=== PATIENT | male | born 1945 | race Caucasian/White ===

== ENCOUNTER 2017-04-27 09:27 | Emergency (ER) | payer OTHER, BC ==
[2017-04-27 09:32] VITALS: RESP 18
--- NOTE | 2017-04-27 11:05 | EDPHY ---
H & P Smoking Status: Never smoked Time Seen by Provider: 04/27/17 10:31 HPI/ROS: CHIEF COMPLAINT: Fever, myalgias, cough HISTORY OF PRESENT ILLNESS: 71-year-old male presents to the emergency department by private vehicle with the, myalgias and cough that began yesterday. Patient lives in [place] and was traveling to [place] was supposed to go skiing this next week. He denies pain in his chest or difficulty breathing. He does not receive flu shots. No known ill contacts. No history of asthma or COPD. He has had pneumonia in the past however he states this feels different. No abdominal pain or vomiting. REVIEW OF SYSTEMS: Constitutional: Fever, chills Eyes: No double or blurry vision. ENT: No sore throat. Respiratory: Cough. no shortness of breath. Cardiac: No chest pain. Gastrointestinal: No abdominal pain, vomiting or diarrhea. Genitourinary: No dysuria. Musculoskeletal: No neck or back pain. Skin: No rashes. Neurological: No headache. (Jeanne Baumann) Past Medical/Surgical History: Negative (Jeanne Baumann) Social History: Single and lives in [place] (Jeanne Baumann) Physical Exam: General Appearance: Alert, no distress. 37.1, 94% on room air. Eyes: Pupils equal and round. Extraocular motions are all intact. ENT: Mouth: Mucous membranes moist. Respiratory: No wheezing, rhonchi, or rales, lungs are clear to auscultation. Cardiovascular: Regular rate and rhythm. Gastrointestinal: Abdomen is soft and nontender, no masses, no rebound or guarding, bowel sounds normal. Neurological: Alert and oriented x 3, cranial nerves II through XII grossly intact Skin: Warm and dry, no rashes. Musculoskeletal: Nontender to palpate along the cervical, thoracic or lumbar spine. Neck is supple. No nuchal rigidity. Extremities: Full range of motion and no peripheral edema. Psychiatric: Patient is oriented X 3, there is no agitation. (Jeanne Baumann) Constitutional: Initial Vital Signs Temperature (C) 37.1 C 04/27/17 09:29 Heart Rate 83 04/27/17 09:29 Respiratory Rate 18 04/27/17 09:29 Blood Pressure 156/93 H 04/27/17 09:29 O2 Sat (%) 94 04/27/17 09:29 O2 Delivery Mode Room Air Allergies/Adverse Reactions: No Known Allergies Allergy (Unverified 04/27/17 09:28) Home Medications: Medication Instructions Recorded Oseltamivir Phosphate [Tamiflu] 75 mg PO BID #10 cap 04/27/17 Medical Decision Making ED Course/Re-evaluation: 71-year-old male presents to the emergency department feeling fever stevenson chilled , cough and myalgias. He was positive for influenza B. Clinically I do not think this patient has pneumonia. He started feeling sick yesterday and I feel that he is a candidate for Tamiflu. I did offer the Tamiflu and he requested the medication. He will start this today. He was instructed to return if he felt short of breath, if he developed any pain in his chest, difficulty breathing, or any other concerns. I discouraged the patient from going up into high altitude especially to the mountains while he is sick especially [place]. (Jeanne Baumann) I did not see this patient while he was in the emergency department. However his care was discussed with the PA while the patient was in the department. I agree with treatment plan and management (Butch Reynolds) Differential Diagnosis: Including but not limited to influenza, viral upper respiratory infection, pneumonia, bronchitis (Jeanne Baumann) Departure - Departure Disposition: Home, Routine, Self-Care Clinical Impression: Influenza B Condition: Good Instructions: Influenza (ED) Additional Instructions: Tamiflu twice daily for 5 days as directed. Return if you feel short of breath, if you develop fever that is not responsive to ibuprofen or Tylenol, or if you feel worse in any way. Referrals: MARIA D GARCIA [Other] - As per Instructions Prescriptions: Oseltamivir Phosphate [Tamiflu] 75 mg PO BID #10 cap
[2017-04-27 11:23] VITALS: BP 180/88; PULSE 78; TEMP 99.3; O2SAT 96
== END 2017-04-27 11:20 | disposition home or self-care (01) ==
DX: J10.1 Influenza due to other identified influenza virus with other respiratory manifestations (principal)